=== PATIENT | male | born 1970 | race Caucasian/White ===

== ENCOUNTER 2023-09-08 11:25 | Emergency (ER) | payer OTHER, SELFPAY ==
[2023-09-08 11:26] VITALS: BP 158/86; PULSE 80; RESP 16; TEMP 35.9; O2SAT 99; BMI 28.4
--- NOTE | 2023-09-08 11:39 | EDS_ITS ---
HPI <JERRY Flores - Last Filed: 09/08/23 13:48> History of Present Illness Chief Complaint: Bite Narrative Narrative: 53-year-old male was playing with his friend's terrier last night when it bit his right lower lip around midnight. He states he was tired so he did not get it checked out but when he woke up this morning he realized a chunk of his lip was missing. It is not really painful. Last tetanus unknown. PFSH <JERRY Flores - Last Filed: 09/08/23 13:48> PFSH Home Medications amoxicillin 875 mg-potassium clavulanate 125 mg tablet 1 tab PO BID 7 days #14 tabs 09/08/23 [Rx Last Taken Unknown] Allergy/AdvReac Type Severity Reaction Status Date / Time No Known Allergies Allergy Verified 07/21/22 10:31 Family History Grandfather Cancer Lung Father COPD (chronic obstructive pulmonary disease) Surgical History H/O wrist surgery Social History Smoking Status: Current every day smoker tobacco type: cigarettes ROS <JERRY Flores - Last Filed: 09/08/23 13:48> ROS ED ROS Narrative Neuro: Negative for motor/sensory dysfunction. Skin: Positive for wound. Heme: Negative for easy bruising, bleeding, lymphadenopathy. EXAM <JERRY Flores Last Filed: 09/08/23 13:48> Physical Exam Narrative Exam Narrative: CONST: Patient sitting in no acute distress. EYES: Normal inspection. ENT: Right lower lip is completely avulsed with open wound with dried blood. NECK: Normal inspection. NEURO: Oriented x4. PSYCH: Normal affect. Const Vital Signs: 09/08/23 11:26 09/08/23 13:46 Temperature 96.6 F L 98 F Temperature Source Temporal Pulse Rate 80 72 Respiratory Rate 16 16 Blood Pressure 158/86 H 148/68 H Blood Pressure Mean 110 94 Pulse Ox 99 99 Oxygen Delivery Method Room Air <Dr. Iker Miller DO - Last Filed: 09/08/23 22:14> Physical Exam Const Vital Signs: 09/08/23 11:26 09/08/23 13:46 Temperature 96.6 F L 98 F Temperature Source Temporal Pulse Rate 80 72 Respiratory Rate 16 16 Blood Pressure 158/86 H 148/68 H Blood Pressure Mean 110 94 Pulse Ox 99 99 Oxygen Delivery Method Room Air [facility] <JERRY Flores - Last Filed: 09/08/23 13:48> [facility] Narrative Medical decision making narrative: History gathered from: Patient and spouse Patient's right lower lip is avulsed from a dog bite that occurred about 12 hours prior to arrival. There is no active bleeding. There is nothing amenable to suturing. Wound was cleansed, tetanus updated, and first dose of Augmentin given. There is not an on-call plastic surgeon in [place] available. I paged [facility] plastic surgery twice but they did not call back. I do not think this requires emergent intervention and the consultation was more for close follow-up. He was given plastic surgery follow-up information, we discussed wound care and signs of infection that would warrant return, and he was discharged in stable condition. <Dr. Iker Miller, - Last Filed: 09/08/23 22:14> [facility] Treatment and Re-Evaluation :: ED attending note: I evaluated the patient in conjunction with the EDD. I agree with his/her statements and above findings. I have personally performed a face to face assessment of the patient and have reviewed the EDD Note. I performed a substantive portion of the visit including all aspects of the following. I personally saw the patient performed chart review, physical exam, reviewed labs, imaging (if obtained), and formulated a treatment and management plan. This note was generated with [employer] dictation software. It may contain incorrect words, spelling, and punctuation that were not noted in review of the chart prior to signing. Discharge Plan Triage Chief Complaint: Bite ED Midlevel Provider: Yumiko Vivas ED Provider: Iker Miller Dx/Rx/DC Orders Clinical Impression: Open wound of lip due to dog bite, Avulsion of lip Instructions: ED Dog Bite Prescriptions: New amoxicillin-pot clavulanate 875-125 mg tablet 1 tab PO BID 7 Days Qty: 14 0RF Stand Alone Forms: ED Work / School Excuse Primary Care Provider: Care Physician,No Primary Referrals: Tin Johnson MD [Med Staff - Active Staff] - Care Physician,No Primary [Primary Care Provider] - Activity Restrictions/Additional Instructions: Please follow-up with a facial plastic surgeon. Take the antibiotics. If any signs of infection like significant swelling, redness, or pus develop return to the ER. Disposition Disposition: Home, Self Care Discharge Date/Time: 09/08/23 13:47
--- OUTSIDE RECORDS SUMMARY | 2023-09-08 12:05 | XMS RPT_ITS | CCD ---
Author Name Unknown Address [address] [place] [address] Organization [facility] Care Team Providers Care Tunnel Mucker Name Role Phone Unavailable Primary Care Provider Unavailabl e Medications Current Medications Medication Drug Class(es) Dates Sig (Normalized) Sig (Original) amoxicillin 875 mg / clavulanate 125 mg oral tablet (2 sources) Penicillin-class Antibacterial Start: 06-17-2023 End: 06-22-2023 take 1 tablet by mouth twice daily amoxicillin-clav ulanate potassium (AUGMENTIN) 875-125 mg per tablet Take 1 tablet by mouth two times a day for 5 days. 10 tablet 0 06/17/2023 06/22/2023 Active Problems Problem Classification Problem Date Documented Da te Episodic/Chronic Disorders of teeth and jaw (2 sources) Cracked tooth; Translations: [Cracked tooth] Episodic Other skin disorders (1 source) Facial swelling ; Translations: [Localized swelling, mass and lump, head] Episodic Results Test Name Value Interpretation Reference Range Facil ity Vital Signs Date Time Vital Sign Value Performing Clinician Rachel sheppard 06-17-2023 15:00-0500 Body temperature 97.5 [degF] Ketan EDWARDS Work Phone: [facility] 06-17-2023 15:00-0500 Body weight 89.81 kg Ketan EDWARDS Work Phone: [facility] 06-17-2023 15:00-0500 Diastolic blood pressure 80 mm[Hg] Ketan EDWARDS Work Phone: [facility] 06-17-2023 15:00-0500 Heart rate 98 /min Ketan EDWARDS Work Phone: [facility] 06-17-2023 15:00-0500 Respiratory rate 16 /min Ketan Blair PA Work Phone: [facility] 06-17-2023 15:00-0500 SaO2% (BldA) [Mass fraction] 98 % Ketan Blair PA Work Phone: [facility] 06-17-2023 15:00-0500 Systolic blood pressure 120 mm[Hg] Ketan Blair PA Work Phone: [facility] 02-10-2022 09:23-0400 Body temperature 98.6 [degF] Evelyn Constantino [employer]SENIOR PRODUCTION MANAGER Work Phone: [facility] 02-10-2022 09:23-0400 Body weight 85.28 kg Evelyn Constantino [employer]SENIOR PRODUCTION MANAGER Work Phone: [facility] 02-10-2022 09:23-0400 Diastolic blood pressure 88 mm[Hg] Evelyn Constantino [employer]SENIOR PRODUCTION MANAGER Work Phone: [facility] 02-10-2022 09:23-0400 Heart rate 72 /min Evelyn Constantino [employer]SENIOR PRODUCTION MANAGER Work Phone: [facility] 02-10-2022 09:23-0400 Respiratory rate 14 /min Evelyn Constantino [employer]SENIOR PRODUCTION MANAGER Work Phone: [facility] 02-10-2022 09:23-0400 SaO2% (BldA) [Mass fraction] 98 % Evelyn Constantino [employer]SENIOR PRODUCTION MANAGER Work Phone: [facility] 02-10-2022 09:23-0400 Systolic blood pressure 136 mm[Hg] Evelyn Constantino [employer]SENIOR PRODUCTION MANAGER Work Phone: [facility] Encounters Encounter Date Encounter Type Care Provider Facility Start: 06-17-2023 End: 06-17-2023 ambulatory Facility:[facility] Start: 06-17-2023 End: 06-17-2023 Patient encounter procedure Ketan EDWARDS Work Phone: [facility] Care Plan of Treatment Date Care Activity Detail Author Start: 03-22-2023 Influenza vaccination Influenza Vacc ine (#1) [facility] Start: 07-22-2022 Depression Assessment Depression Ass essment [facility] Start: 03-22-2022 Influenza vaccination INFLUENZA (#1) [facility] Start: 2021 SHINGRIX VACCINE (1 of 2) SHINGRIX V ACCINE (1 of 2) [facility] Start: 2016 COLOGUARD (FIT-DNA) COLOGUARD (FIT-D NA) [facility] Start: 2016 Colonoscopy COLONOSCOPY [facility] Start: 2016 COLORECTAL CANCER SCREENING COLORECTAL CANCER SCREENING [facility] Start: [address] COLONOGRAPHY [facility] Start: 2016 DIABETES SCREEN DIABETES SCREEN [facility] Start: 2016 Diabetes Screening Diabetes Screenin g [facility] Start: 2016 FECAL OCCULT BLOOD FECAL OCCULT BLOO D [facility] Start: 2016 SIGMOIDOSCOPY SIGMOIDOSCOPY [facility] Start: 2006 Lipid 1996 panel - S claudia or Plasma Lipid Screening [facility] Start: 2006 LIPID SCREEN LIPID SCREEN [facility] Start: 1990 Urine microalbumin profile [facility] Start: 1989 HEPATITIS C SCREENING HEPATITIS C SC REENING [facility] Start: 1989 HIV SCREENING HIV SCREENING [facility] Start: 1983 Adult depression scr eening assessment DEPRESSION SCREENING [facility] Start: 01-06-1972 COVID-19 VACCINE (#1) COVID-19 VACCI NE (#1) [facility] Start: 1971 Hepatitis B Vaccine (1 of 3 - 3-dose series) Hepatitis B Vaccine (1 of 3 - 3-dose series) [facility] Payers Date Payer Category Payer Unknown [employer] [id number] 2023-Present [phone] [address] [place] [address] PPO [id number] 2023 Unknown [id number] [address] [facility] UMR CHOICE PLUS [id number] 2020-Present [phone] [address] [address] [place] [address] O [id number] Social History Date Type Detail Facility Start: 02-10-2022 End: 06-17-2023 Tobacco smoking status NHIS Ex-smoker [facility] Start: 02-10-2022 End: 06-17-2023 Tobacco use and exposure Smokeless tobacco non-user [facility] Start: 1970 Sex Assigned At Not on file [facility] Start: 01-31-2022 End: 02-10-2022 Exposure to SARS-CoV-2 (event) Not sure [facility] History of tobacco use Current smoker [facility] Work Phone: Start: 06-17-2023 History of Social function [facility] Start: 06-17-2023 Tobacco use panel [facility] Progress note 06-17-2023 Note Date & Type Note Facility 06-17-2023 Note HNO ID: [id number] Author: Ketan Blair PA Service: ? Author Type: Physician Coat Padder Type: Progress Notes Filed: 06/17/2023 3:06 PM Note Text: This note was created using Netgenriter. Subjective Merlene Drew JR is a 52 year old male. HPI 52-year-old male presents for left-sided facial swelling. Patient states that started a couple days ago. He does have some dental decay/dental pain. He has had dental infections in the past. He also has had some nasal congestion for about 3 days. No cough. No fevers. No difficulty swallowing or breathing. No past medical history on file. No past surgical history on file. ALLERGIES Patient has no known allergies. MEDICATIONS amoxicillin-clavulanate potassium (AUGMENTIN) 875-125 mg per tablet Take 1 tablet by mouth two times a day for 5 days. No family history on file. Social History Tobacco Use Smoking status: Former Smokeless tobacco: Never Review of Systems Constitutional: Negative for chills and fever. HENT: Positive for congestion, dental problem and facial swelling. Negative for sore throat. Respiratory: Negative for cough and shortness of breath. Gastrointestinal: Negative for diarrhea and vomiting. Objective BP 120/80 Pulse 98 Temp 36.4 ?C (97.5 ?F) Resp 16 Wt 89.8 kg (198 lb) SpO2 98% Physical Exam Vitals and nursing note reviewed. Constitutional: General: He is not in acute distress. Appearance: Normal appearance. He is not toxic-appearing. HENT: Head: Right Ear: Tympanic membrane and ear canal normal. Left Ear: Tympanic membrane and ear canal normal. Nose: Rhinorrhea present. Mouth/Throat: Mouth: Mucous membranes are moist. Dentition: Abnormal dentition. Dental tenderness, gingival swelling and dental caries present. Comments: Multiple dental caries and several missing teeth. Tenderness over right upper molars with cavity present. Some gingival swelling noted. No abscess. Eyes: Conjunctiva/sclera: Conjunctivae normal. Cardiovascular: Rate and Rhythm: Normal rate and regular rhythm. Pulmonary: Effort: Pulmonary effort is normal. Breath sounds: Normal breath sounds. Skin: General: Skin is warm and dry. Neurological: Mental Status: He is alert. Assessment and Plan ASSESSMENT/PLAN: 1. Dental infection - ICD9: 522.4, ICD10: K04.7 -Rx for Augmentin. -Patient is trying to get an appointment with a dentist. -Red flags given and when to be seen in ER. Diagnosis and treatment plan were discussed and questions were answered to the patient's satisfaction. Pt acknowledged understanding of concepts and follow up plan. Specific signs and symptoms that would indicate the need for higher level of care were discussed in detail warranting prompt ER evaluation. JERRY Phipps [facility] History of Present illness Narrative 06-17-2023 Ketan Blair PA - 06/17/2023 3:04 PM EST Note Date & Type Note Facility 06-17-2023 History of Presen t illness Narrative Images from the original note were not included. This note was created using Netgenriter. Subjective Merlene Drew JR is a 52 year old male. HPI 52-year-old male presents for left-sided facial swelling. Patient states that started a couple days ago. He does have some dental decay/dental pain. He has had dental infections in the past. He also has had some nasal congestion for about 3 days. No cough. No fevers. No difficulty swallowing or breathing. No past medical history on file. No past surgical history on file. ALLERGIES Patient has no known allergies. MEDICATIONS amoxicillin-clavulanate potassium (AUGMENTIN) 875-125 mg per tablet Take 1 tablet by mouth two times a day for 5 days. No family history on file. Social History Tobacco Use Smoking status: Former Smokeless tobacco: Never \ Review of Systems Constitutional: Negative for chills and fever. HENT: Positive for congestion, dental problem and facial swelling. Negative for sore throat. Respiratory: Negative for cough and shortness of breath. Gastrointestinal: Negative for diarrhea and vomiting. Objective BP 120/80 Pulse 98 Temp 36.4 C (97.5 F) Resp 16 Wt 89.8 kg (198 lb) SpO2 98% Physical Exam Vitals and nursing note reviewed. Constitutional: General: He is not in acute distress. Appearance: Normal appearance. He is not toxic-appearing. HENT: Head: Right Ear: Tympanic membrane and ear canal normal. Left Ear: Tympanic membrane and ear canal normal. Nose: Rhinorrhea present. Mouth/Throat: Mouth: Mucous membranes are moist. Dentition: Abnormal dentition. Dental tenderness, gingival swelling and dental caries present. Comments: Multiple dental caries and several missing teeth. Tenderness over right upper molars with cavity present. Some gingival swelling noted. No abscess. Eyes: Conjunctiva/sclera: Conjunctivae normal. Cardiovascular: Rate and Rhythm: Normal rate and regular rhythm. Pulmonary: Effort: Pulmonary effort is normal. Breath sounds: Normal breath sounds. Skin: General: Skin is warm and dry. Neurological: Mental Status: He is alert. Assessment and Plan ASSESSMENT/PLAN: 1. Dental infection - ICD9: 522.4, ICD10: K04.7 -Rx for Augmentin. -Patient is trying to get an appointment with a dentist. -Red flags given and when to be seen in ER. Diagnosis and treatment plan were discussed and questions were answered to the patient's satisfaction. Pt acknowledged understanding of concepts and follow up plan. Specific signs and symptoms that would indicate the need for higher level of care were discussed in detail warranting prompt ER evaluation. JERRY Phipps documented in this encounter [facility] Instructions 02-10-2022 Patient Instructions Note Date & Type Note Facility 02-10-2022 Instructions Evelyn Constantino APRN.SENIOR PRODUCTION MANAGER - 02/10/2022 9:33 AM EDT Dental Care Services Here are low cost places you can go for dental care: [facility] [address] [facility]- [phone] Services:Extractions only- No wisdom teeth Hours: - 4:15 P.M. Fee: Free- Donations are accepted [facility] [address] [facility] ([address]) Services: Health history, exam, cleaning, X-Rays, patient education and nutritional counseling. Hours: Varies with the school year. By appointment only. Fee: Over 12 years of age, $10.00; Under 12 year of age $6.00 [facility] [address] [facility] ([facility]): [phone] [facility]): [phone] (Note: These are the only [facility] which offer dental services) Services: Full dental services Hours: 8:30 a.m. to 5:30 p.m., Saturday through Saturday. By appointment. Fee: Sliding Scales and Medicaid. Bring ID and proof of income. [facility] [address] [phone]. [phone]) Services: Full dental services. Hours: By appointment only. Fee: [place] and Medicaid. Bring ID and proof of income. [facility] [address] [facility]. [address], [place] [phone] Services: Full dental services. Hours: 8:15 a.m.- 5:00 p.m. By appointment only. Fee: Flat fee. Medicaid and insurances. Bring ID and proof of income. [facility]: By main entrance of [facility] [phone] Services: Full dental services. Hours:Varies with school year. Call for appointment. Fee: Flat fee. Medicaid and insurances. Bring ID and proof of income. [facility] [address] (Between [place] and [place]) [phone] Services: Full dental services. Hours: 8:30 a.m.-4:00 p.m. Saturday through Saturday. Appointments recommended. Emergency walk ins- 8:30 a.m.- 11:15 a.m. and 2:00 p.m-3:15 p.m. Fee: [place]iding [place]es and Medicaid. Bring ID and proof of income. [facility] [address] [facility] [phone] Services: Full dental services. Hours: 9:00 a.m.-4:45 p.m. Saturday through Saturday. Appointments and emergency walk in. Fee: [place]iding Scales and Medicaid. Bring ID and proof of income. documented in this encounter [facility] History of Present illness Narrative 02-10-2022 Evelyn Constantino APRN.CNP - 02/10/2022 9:31 AM EDT Note Date & Type Note Facility 02-10-2022 History of Presen t illness Narrative Images from the original note were not included. This note was created using Netgenriter. Subjective Merlene Drew JR is a 51 year old male. 51 year old male with no PMH presents for facial swelling and dental problem Acute onset around Left side +swelling and pain Endorses that his left upper molar is cracked +decay Denies fever or chills. Denies inability to open or close mouth Denies dentist. The history is provided by the patient. No speech language pathologist travel was used. Dental Problem This is a new problem. The current episode started in the past 7 days. The problem occurs constantly. Pertinent negatives include no abdominal pain, anorexia, arthralgias, change in bowel habit, chest pain, chills, congestion, coughing, diaphoresis, fatigue, fever, headaches, joint swelling, myalgias, nausea, neck pain, numbness, rash, sore throat, swollen glands, urinary symptoms, vertigo, visual change, vomiting or weakness. The symptoms are aggravated by eating and drinking. He has tried nothing for the symptoms. The treatment provided no relief. No past medical history on file. No past surgical history on file. ALLERGIES Patient has no known allergies. MEDICATIONS amoxicillin-clavulanic acid (AUGMENTIN) 875-125 mg per tablet Take 1 tablet by mouth twice daily for 5 days. No family history on file. Social History Tobacco Use Smoking status: Former Smoker Smokeless tobacco: Never Used Substance Use Topics Alcohol use: Not on file Drug use: Not on file Review of Systems Constitutional: Negative for chills, diaphoresis, fatigue and fever. HENT: Positive for dental problem. Negative for congestion, ear discharge, ear pain, rhinorrhea, sinus pain and sore throat. Eyes: Negative for photophobia, pain, discharge, redness, itching and visual disturbance. Respiratory: Negative for apnea, cough, choking and chest tightness. Cardiovascular: Negative for chest pain, palpitations and leg swelling. Gastrointestinal: Negative for abdominal pain, anorexia, change in bowel habit, diarrhea, nausea and vomiting. Musculoskeletal: Negative for arthralgias, joint swelling, myalgias and neck pain. Skin: Negative for color change, pallor and rash. Allergic/Immunologic: Negative for environmental allergies, food allergies and immunocompromised state. Neurological: Negative for dizziness, vertigo, facial asymmetry, weakness, numbness and headaches. Hematological: Negative for adenopathy. Does not bruise/bleed easily. Psychiatric/Behavioral: Negative for agitation and behavioral problems. Objective BP 136/88 Pulse 72 Temp 37 C (98.6 F) Resp 14 Wt 85.3 kg (188 lb) SpO2 98% Physical Exam Vitals and nursing note reviewed. Constitutional: General: He is not in acute distress. Appearance: Normal appearance. He is not ill-appearing, toxic-appearing or diaphoretic. HENT: Head: Normocephalic and atraumatic. Right Ear: External ear normal. Left Ear: External ear normal. Nose: Nose normal. No congestion or rhinorrhea. Mouth/Throat: Mouth: Mucous membranes are moist. Pharynx: Oropharynx is clear. No oropharyngeal exudate or posterior oropharyngeal erythema. Eyes: General: Right eye: No discharge. Left eye: No discharge. Extraocular Movements: Extraocular movements intact. Conjunctiva/sclera: Conjunctivae normal. Pupils: Pupils are equal, round, and reactive to light. Cardiovascular: Rate and Rhythm: Normal rate and regular rhythm. Pulses: Normal pulses. Heart sounds: Normal heart sounds. No murmur heard. No friction rub. No gallop. Pulmonary: Effort: Pulmonary effort is normal. No respiratory distress. Breath sounds: Normal breath sounds. No stridor. No wheezing, rhonchi or rales. Chest: Chest wall: No tenderness. Abdominal: General: Abdomen is flat. There is no distension. Palpations: Abdomen is soft. There is no mass. Tenderness: There is no abdominal tenderness. There is no guarding or rebound. Hernia: No hernia is present. Musculoskeletal: General: No swelling, tenderness, deformity or signs of injury. Normal range of motion. Cervical back: Normal range of motion and neck supple. No rigidity or tenderness. Right lower leg: No edema. Left lower leg: No edema. Lymphadenopathy: Cervical: No cervical adenopathy. Skin: General: Skin is warm and dry. Capillary Refill: Capillary refill takes less than 2 seconds. Coloration: Skin is not jaundiced or pale. Findings: No bruising, lesion or rash. Neurological: General: No focal deficit present. Mental Status: He is alert and oriented to person, place, and time. Cranial Nerves: No cranial nerve deficit. Sensory: No sensory deficit. Motor: No weakness. Coordination: Coordination normal. Gait: Gait normal. Deep Tendon Reflexes: Reflexes normal. Psychiatric: Mood and Affect: Mood normal. Behavior: Behavior normal. Thought Content: Thought content normal. Assessment and Plan ASSESSMENT/PLAN: 1. Facial swelling - ICD9: 784.2, ICD10: R22.0 (primary diagnosis) X few days +dental decay Will prescribe Augmentin Provided list of free/reduced dental. Discussed red flags. 2. Cracked tooth - ICD9: 521.81, ICD10: K03.81 X few days +dental decay Will prescribe Augmentin Provided list of free/reduced dental. Discussed red flags. Evelyn Constantino APRN.ABY documented in this encounter [facility] Evaluation note Note Date & Type Note Facility documented in this encounter [facility] Evaluation note Note Date & Type Note Facility documented in this encounter [facility] Summary Purpose Family History No Family History Records Found Advance Directives No Advanced Directives Records Found Additional Source Comments Source Comments (unrecognize d section and content) In the event this informatio n is protected by the Federal Confidentiality of Alcohol and Drug Abuse Patient Records regulations: The Federal rules restrict any use of the information to criminally investigate or prosecute any alcohol or drug abuse patient[facility] the event this information is protected by the Federal Confidentiality of Alcohol and Drug Abuse Patient Records regulations: The Federal rules restrict any use of the information to criminally investigate or prosecute any alcohol or drug abuse patient.[facility] Reason for Visit (unrecogniz ed section and content) Reason Comments Dental Problem left upper facial pa in and swelling x 4 days (unrecognized sect ion and content) No Status Records Found INFORMATION SOURCE (unrecogn ized section and content) FOR RECORDS PERTAINING TO PATIENTS WHO ARE OR HAVE BEEN ENROLLED IN A CHEMICAL DEPENDENCY/SUBSTANCEABUSE PROGRAM, SOME INFORMATION MAY BE OMITTED. This clinical summary was aggregated from multiple sources. Caution should be exercised in using it in the provision of clinical care. This summary normalizes information from multiple sources, and as a consequence, information in this document may materially change the coding, format and clinical context of patient data. In addition, data may be omitted in some cases. CLINICAL DECISIONS SHOULD BE BASED ON THE PRIMARY CLINICAL RECORDS. [employer] provides no warranty or guarantee of the accuracy or completeness of information in this document.
[2023-09-08] MEDS: Amox/Clavulanate 875 MG Tablet PO (12:59)
[2023-09-08] MEDS: Diphth,Pertuss(Acell),Tet Vac 0.5 ML Vial IM (12:59)
[2023-09-08 13:46] VITALS: BP 148/68; PULSE 72; RESP 16; TEMP 36.6; O2SAT 99
== END 2023-09-08 13:47 | disposition home or self-care (01) ==
PROVIDERS: Emergency Provider Emergency Medicine; Visit Provider Emergency Medicine
DX: S01.551A Open bite of lip, initial encounter (principal); F17.210 Nicotine dependence, cigarettes, uncomplicated; W54.0XXA Bitten by dog, initial encounter; Y93.89 Activity, other specified; Z23 Encounter for immunization
CPT/HCPCS: 90715; 99283